=== PATIENT | male | born 2000 | race Caucasian/White ===

== ENCOUNTER 2022-11-29 09:39 | Emergency (ER) | payer OTHER ==
[2022-11-29 09:52] VITALS: BP 115/86; PULSE 65; RESP 18; TEMP 97.5; BMI 23.2
[2022-11-29] MEDS ORDERED: ACETAMINOPHEN 500 MG TABLET (FP) PO ONE (10:46)
[2022-11-29] MEDS ORDERED: ACETAMINOPHEN 500 MG TABLET (FP) ONE (10:56)
[2022-11-29] MEDS ORDERED: IBUPROFEN 600 MG TABLET (FP) PO ONE ×2 (11:04→11:23)
== END 2022-11-29 11:35 | disposition home or self-care (01) ==
LOC: JER 09:39
DX: R51.9 Headache, unspecified (principal)
CPT/HCPCS: 99282-25